=== PATIENT | female | born 1970 | race Caucasian/White ===

== ENCOUNTER → 2021-09-29 12:50 | Outpatient (BNVA) | payer MEDICARE, SELFPAY | PROVIDERS: PCP Internal Medicine; Referring Provider Internal Medicine; Visit Provider Physician Assistant Surgical | DX: E66.01 Morbid (severe) obesity due to excess calories (principal); F17.210 Nicotine dependence, cigarettes, uncomplicated; Z68.41 Body mass index [BMI] 40.0-44.9, adult; Z98.84 Bariatric surgery status; Z96.662 Presence of left artificial ankle joint; Z96.629 Presence of unspecified artificial elbow joint; Z96.649 Presence of unspecified artificial hip joint; Z96.659 Presence of unspecified artificial knee joint; Z86.73 Personal history of transient ischemic attack (TIA), and cerebral infarction without residual deficits; Z88.1 Allergy status to other antibiotic agents; Z79.891 Long term (current) use of opiate analgesic; Z79.899 Other long term (current) drug therapy | CPT/HCPCS: 99202 ==

== ENCOUNTER → 2021-10-06 13:00 | Outpatient (BNVA) | payer MEDICARE, SELFPAY | PROVIDERS: PCP Internal Medicine; Visit Provider Counselor Mental Health | DX: F31.32 Bipolar disorder, current episode depressed, moderate (principal); E66.01 Morbid (severe) obesity due to excess calories | CPT/HCPCS: 90791 ==

== ENCOUNTER → 2021-10-19 08:10 | Outpatient (BNVA) | payer MEDICARE, SELFPAY | PROVIDERS: PCP Internal Medicine; Referring Provider Internal Medicine; Visit Provider Physician Assistant Surgical | DX: Z11.0 Encounter for screening for intestinal infectious diseases (principal) | CPT/HCPCS: 99211 ==

== ENCOUNTER 2021-10-19 16:09 | Outpatient (REF) | payer MEDICARE, SELFPAY ==
[2021-10-20 11:29] LABS: H Pylori Breath Test Negative (Negative)
== END 2021-10-19 16:10 | disposition home or self-care (01) ==
LOC: HO.LNP 16:09
PROVIDERS: Visit Provider Physician Assistant Surgical
DX: E66.01 Morbid (severe) obesity due to excess calories (principal); Z11.0 Encounter for screening for intestinal infectious diseases
CPT/HCPCS: 83013

== ENCOUNTER 2023-06-20 14:52 | Outpatient (AMB) | payer MEDICARE, SELFPAY ==
--- NOTE | 2023-06-20 14:54 | HO.NEPHOV ---
HPI HPI Comments History of Present Illness Details Middle-aged woman with a history of obesity was undergone gastric bypass in 2004 and history of lithium use has been referred for polyuria. She admits to drinking plenty of water. She has episodes of Tachycardia- A.fib was recently diagnosed PFSH Surgical History Hx of colonoscopy History of wisdom tooth extraction, class I edentulism Hx of breast reduction, elective Hx of appendectomy Hx of gastric bypass Hx of ankle fusion History of left ankle joint replacement Hx of total knee replacement History of hip replacement Hx of elbow replacement Family History Mother Diabetes Afib Arthritis Hypertension High cholesterol Father Stroke Diabetes Dementia Brother No problems noted. Social History Alcohol intake: current Alcohol intake frequency: a few times a month Patient Tobacco Use Status: Current someday Tobacco user Cigarettes Per Day: 7 Vital Signs 06/20/23 14:58 Height 5 ft 2 in Weight 266 lb BMI 48.6 BP 116/60 Blood Pressure Location Lt brachial Position Sitting Pulse 82 Pulse Source Pulse Oximeter Pulse Oximetry (%) 97 Oxygen Delivery Method Room Air Physical Exam Vital Signs: Last Vital Signs Pulse 82 06/20/23 14:58 BP 116/60 06/20/23 14:58 Pulse Ox 97 06/20/23 14:58 Oxygen Delivery Method Room Air 06/20/23 14:58 BMI result Body Mass Index 48.6 Const General: comfortable; No acute distress Orientation/consciousness: patient oriented x3 Eyes General: appearance normal, both eyes and all related structures Visual Holalnd: normal visual holland by confrontation Neck Neck: Yes supple and Yes no JVD Resp Effort & Inspection: normal respiratory effort and respiratory effort not decreased Auscultation: rhonchi Cardio Palpation: no palpable S3 and no palpable S4 Heart sounds: no rubs GI Inspection: Yes normal to inspection Palpation (GI): Soft to palpation Percussion: Yes normal to percussion Auscultation: normal bowel sounds General: Yes no CVA tenderness Back/Spine/Pelvis Back: no CVA tenderness Skin General skin exam: no petechiae and no purpura Neuro General: patient oriented x3 and no focal motor deficits Extrem General: No clubbing and No edema Results Reviewed Results Reviewed: As of June 14 BUN was 10 creatinine 0.6 serum sodium 135 In January urine specific gravity was 1.009 Assessment & Plan Assessment & Plan (1) Polyuria: Code(s): R35.89 - Other polyuria Plan: The differential diagnosis of polyuria at this time would include diabetes insipidus due to chronic lithium use or primary polydipsia. I will initiate a workup including a 24 urine collection and urine for sodium creatinine osmolality. (2) Anemia: Code(s): D64.9 - Anemia, unspecified Plan: This seems to be chronic. She has had iron deficiency. She has undergone GI workup. I will refer to Hematology. Orders: Orders Creatinine Clearance Urine 06/20/23 R35.89 - Other polyuria Sodium, 24Hr Urine Group 06/20/23 R35.89 - Other polyuria Creatinine, 24 Hr Group 06/20/23 R35.89 - Other polyuria Referrals Hematology & Oncology Referral D64.9 - Anemia, unspecified Coding Level of Care Code Est Pt Level 4 (98278) Diagnoses Polyuria R35.89 Anemia D64.9
[2023-06-20 14:58] VITALS: BP 116/60; PULSE 82; O2SAT 97; BMI 48.6
== END 2023-06-20 15:23 | disposition home or self-care (01) ==
PROVIDERS: PCP Internal Medicine; Visit Provider Internal Medicine Hypertension Specialist
DX: R35.89 Other polyuria (principal); D64.9 Anemia, unspecified
CPT/HCPCS: 99214

== ENCOUNTER → 2023-06-20 14:52 | Outpatient (BNVA) | payer MEDICARE, SELFPAY | PROVIDERS: PCP Internal Medicine; Visit Provider Internal Medicine Hypertension Specialist | DX: R35.89 Other polyuria (principal); D64.9 Anemia, unspecified | CPT/HCPCS: 99212 ==